=== PATIENT | male | born 1940 | race Caucasian/White ===

== ENCOUNTER 2019-07-13 12:26 | Outpatient (CLI) | payer MEDICARE, OTHER | END 2019-07-13 12:27 | disposition critical access hospital (66) | LOC: EMS 12:26 | PROVIDERS: ATTEND Surgery | DX: T44.7X1A Poisoning by beta-adrenoreceptor antagonists, accidental (unintentional), initial encounter (principal); R00.2 Palpitations | CPT/HCPCS: A0425; A0429 ==

== ENCOUNTER 2019-07-13 12:30 | Emergency (ER) | payer MEDICARE, OTHER ==
--- NOTE | 2019-07-13 13:02 | ED Physician Documentation ---
History of Present Illness - Stated complaint Stated Complaint: OD - Chief complaint Chief Complaint: General - History obtained from History obtained from: Patient, Family - History of Present Illness Pain level max: 0 Pain level now: 0 Improved by: nothing Worsened by: nothing - Additonal information Additional information: 78-year-old male was discharged from the hospital yesterday. He was started on metoprolol XL, 12 1/2 mg p.o. twice daily. There are 25 mg tabs and he is suppo sed to cut them in half. He accidentally took a whole pill last night and a whole pill this morning. 25 mg last night and 25 mg this morning. He states that he felt lightheaded and dizzy. He called the hospitalist here who recommended he come in for evaluation. He is currently asymptomatic and states that he feels much better now. No chest pain. No shortness of breath. Review of Systems Constitutional: denies: Fever, Chills Cardiac: denies: Chest pain / pressure, Palpitations Respiratory: denies: Cough GI: denies: Nausea, Vomiting, Diarrhea PD PAST MEDICAL HISTORY - Past Medical History Cardiovascular: Hypertension, High cholesterol, Coronary artery disease, Arrhythmia, Other Respiratory: Sleep apnea, CPAP use Neuro: None Endocrine/Autoimmune: None GI: GERD, Hiatal hernia, Other : Other HEENT: None Psych: None Musculoskeletal: Other Derm: None - Past Surgical History General: Other Ortho: Knee replacement, Other Cardiovascular: Coronary stent HEENT: Cataracts - Present Medications Home Medications: Ambulatory Orders Medication Instructions Recorded Confirmed Aspirin Chewable [[place] 81 mg PO DAILY 04/07/16 07/12/19 Aspirin] Oxybutynin [Ditropan] 10 mg PO DAILY 04/07/16 07/12/19 Ramipril [Altace] 2.5 mg PO QPM 04/07/16 07/12/19 Simvastatin 20 mg PO QPM 04/07/16 07/12/19 Omeprazole 20 mg PO BID 07/11/19 07/12/19 Melatonin 6 mg PO QPM 07/12/19 07/12/19 Metoprolol Succinate [Toprol Xl] 12.5 mg PO BID #30 tab.er.24h 07/12/19 - Allergies Allergies/Adverse Reactions: Allergies Allergy/AdvReac Type Severity Reaction Status Date / Time cephalexin monohydrate * AdvReac Nausea Verified 07/11/19 12:01 [From Keflex] - Social History Does the pt smoke?: No Smoking Status: Former smoker Does the pt drink ETOH?: Yes Does the pt have substance abuse?: No - Immunizations Immunizations are current?: Yes PD ED PE NORMAL - Vitals Vital signs reviewed: Yes - General General: Alert and oriented X 3, No acute distress, Well developed/nourished - HEENT HEENT: Moist mucous membranes - Neck Neck: Supple, no meningeal sign - Cardiac Cardiac: RRR, Strong equal pulses - Respiratory Respiratory: No respiratory distress, Clear bilaterally - Abdomen Abdomen: Soft, Non tender, Non distended - Derm Derm: Warm and dry - Neuro Neuro: Alert and oriented X 3 - Psych Psych: Normal mood, Normal affect Results - Vitals Vitals: Vital Signs - 24 hr 07/13/19 07/13/19 12:37 13:34 Temperature 37.2 C 37.5 C Heart Rate 85 78 Respiratory 16 18 Rate Blood Pressure 152/79 H 127/77 O2 Saturation 97 95 Oxygen O2 Source Room air - EKG (time done) 1238 Rate: Rate (enter#) (79) Rhythm: NSR Intervals: 1st degree AVB, LBBB PD MEDICAL DECISION MAKING - ED course Complexity details: considered differential, d/w patient, d/w mobile sales consultant (Discussed the case with hospitalist, Dr. Foster who prescribed the medication. She agrees with the plan) ED course: 78-year-old male with an accidental overdose of metoprolol. This is inconsequential clinically. Normal blood pressure. Normal heart rate. Asymptomatic. We will have him skip his dose tonight and resume his normal dose tomorrow morning. Patient counseled regarding signs and symptoms for which I believe and urgent re-evaluation would be necessary. Patient with good understanding of and agreement to plan and is comfortable going home at this time This document was made in part using voice recognition software. While efforts are made to proofread this document, sound alike and grammatical errors may occur. Departure - Departure Disposition: 01 Home, Self Care Clinical Impression: Accidental overdose Qualifiers: Encounter type: initial encounter Qualified Code(s): T50.901A - Poisoning by unspecified drugs, medicaments and biological substances, accidental (unintentional), initial encounter Condition: Good Instructions: ED Overdose Accidental Follow-Up: your,doctor in 1 week [Other] Comments: You can restart your metoprolol tomorrow. Return if you worsen. Because the pill is scored, you can cut it in half. Discharge Date/Time: 07/13/19 13:39
[2019-07-13 13:34] VITALS: BP 127/77
== END 2019-07-13 13:39 | disposition home or self-care (01) ==
LOC: EDUNIT# → ED 12:30
DX: T44.7X1A Poisoning by beta-adrenoreceptor antagonists, accidental (unintentional), initial encounter (principal); I10 Essential (primary) hypertension; Z87.891 Personal history of nicotine dependence
CPT/HCPCS: 93005; 99282; 99284

== ENCOUNTER 2019-07-20 09:38 | Outpatient (CLI) | payer MEDICARE, OTHER | END 2019-07-20 09:39 | disposition critical access hospital (66) | LOC: EMS 09:38 | PROVIDERS: ATTEND Surgery | DX: R09.89 Other specified symptoms and signs involving the circulatory and respiratory systems (principal) | CPT/HCPCS: A0425; A0429 ==

== ENCOUNTER 2019-07-20 10:38 | Emergency (ER) | payer MEDICARE, OTHER ==
--- NOTE | 2019-07-20 11:19 | ED Physician Documentation ---
History of Present Illness - Stated complaint Stated Complaint: PALPITATIONS - Chief complaint Chief Complaint: Cardiac - History obtained from History obtained from: Patient, EMS - History of Present Illness Timing: Today Pain level max: 0 Pain level now: 0 - Additonal information Additional information: 78-year-old male with a history of ventricular bigeminy. He states that he felt palpitations again today. Took his propranolol and called 911. Is currently feeling better. No chest pain. No shortness of breath. No headache. No syncope. No seizure. Has a cardiac stress test scheduled next week Review of Systems Ten Systems: 10 systems reviewed and negative Constitutional: denies: Fever, Chills Throat: denies: Sore throat Cardiac: denies: Chest pain / pressure, Calf pain Respiratory: denies: Dyspnea, Cough GI: denies: Vomiting, Diarrhea Skin: denies: Rash Musculoskeletal: denies: Neck pain, Back pain Neurologic: denies: Headache PD PAST MEDICAL HISTORY - Past Medical History Cardiovascular: Hypertension, High cholesterol, Coronary artery disease, Arrhythmia, Other Respiratory: Sleep apnea, CPAP use Neuro: None Endocrine/Autoimmune: None GI: GERD, Hiatal hernia, Other : Other HEENT: None Psych: None Musculoskeletal: Other Derm: None - Past Surgical History General: Other Ortho: Knee replacement, Other Cardiovascular: Coronary stent HEENT: Cataracts - Present Medications Home Medications: Ambulatory Orders Medication Instructions Recorded Confirmed Aspirin Chewable [[place] 81 mg PO DAILY 04/07/16 07/12/19 Aspirin] Oxybutynin [Ditropan] 10 mg PO DAILY 04/07/16 07/12/19 Ramipril [Altace] 2.5 mg PO QPM 04/07/16 07/12/19 Simvastatin 20 mg PO QPM 04/07/16 07/12/19 Omeprazole 20 mg PO BID 07/11/19 07/12/19 Melatonin 6 mg PO QPM 07/12/19 07/12/19 Metoprolol Succinate [Toprol Xl] 12.5 mg PO BID #30 tab.er.24h 07/12/19 Propranolol [Inderal] 10 mg PO 07/20/19 - Allergies Allergies/Adverse Reactions: Allergies Allergy/AdvReac Type Severity Reaction Status Date / Time cephalexin monohydrate * AdvReac Nausea Verified 07/20/19 10:45 [From KeEpigami] - Social History Does the pt smoke?: No Smoking Status: Never smoker Does the pt drink ETOH?: Yes Does the pt have substance abuse?: No - Immunizations Immunizations are current?: Yes PD ED PE NORMAL - Vitals Vital signs reviewed: Yes - General General: Alert and oriented X 3, No acute distress, Well developed/nourished - HEENT HEENT: Moist mucous membranes - Neck Neck: Supple, no meningeal sign - Cardiac Cardiac: RRR, Strong equal pulses - Respiratory Respiratory: No respiratory distress, Clear bilaterally - Abdomen Abdomen: Soft, Non tender, Non distended - Derm Derm: Warm and dry - Extremities Extremities: No edema - Neuro Neuro: Alert and oriented X 3 - Psych Psych: Normal mood, Normal affect Results - Vitals Vitals: Vital Signs - 24 hr 07/20/19 07/20/19 10:40 11:36 Temperature 36.6 C Heart Rate 79 70 Respiratory 20 11 L Rate Blood Pressure 134/83 H 125/77 O2 Saturation 100 97 Oxygen O2 Source Room air - EKG (time done) 1042 Rate: Rate (enter#) (101) Rhythm: Sinus tachycardia, Other (Left bundle branch block. 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 No acute issues today. No chest pain. No shortness of breath. Has a cardiac stress test scheduled next week. He will follow-up with his doctor for further care. Patient counseled regarding signs and symptoms for which I believe and urgent re-evaluation would be necessary. Patient with good understanding of and agreement to plan and is comfortable going home at this time This document was made in part using voice recognition software. While efforts are made to proofread this document, sound alike and grammatical errors may occur. Departure - Departure Disposition: 01 Home, Self Care Clinical Impression: Ventricular bigeminy Condition: Good Instructions: ED Palpitations Follow-Up: RICARDO MIRANDA ARNP [Primary Care Provider] - Within 1 week Comments: Continue your medications at home. Return if you worsen. Follow-up with your doctor for further care. Discharge Date/Time: 07/20/19 11:41
[2019-07-20 11:37] VITALS: BP 125/77
== END 2019-07-20 11:41 | disposition home or self-care (01) ==
LOC: EDUNIT# → ED 10:38
DX: I49.8 Other specified cardiac arrhythmias (principal); I10 Essential (primary) hypertension
CPT/HCPCS: 93005; 99284